=== PATIENT | female | born 1945 | race Hispanic/Latino ===

== ENCOUNTER 2022-11-12 13:46 | Outpatient (CLI) | payer OTHER | END 2022-11-12 19:27 | disposition home or self-care (01) | LOC: RAD 13:46 | PROVIDERS: ATTEND Internal Medicine Rheumatology | DX: M06.4 Inflammatory polyarthropathy (principal); M19.041 Primary osteoarthritis, right hand; M19.042 Primary osteoarthritis, left hand ==

== ENCOUNTER 2023-02-13 14:04 | Outpatient (CLI) | payer OTHER | END 2023-02-13 19:10 | disposition home or self-care (01) | LOC: RAD 14:04 | PROVIDERS: ATTEND Internal Medicine Rheumatology | DX: Z78.0 Asymptomatic menopausal state (principal) ==